=== PATIENT | male | born 1975 | race Caucasian/White ===

== ENCOUNTER 2018-04-27 12:12 | Inpatient (IN) | payer BC, MEDICAID, OTHER ==
--- NOTE | 2018-04-27 13:07 | C.PDOC ---
History Of Present Illness 43 years old male with recurrent possible colitis and no past surgical history presents to ED for complaints of LLQ abdominal pain that began 4 days ago. Patient describes pain as localized, constant and worsening. Patient also repor ts experiencing similar symptoms in the past with prior admission. Patient also states he is taking Oxycontin medications as needed for chronic lower back pain and headaches. Patient states "I do not want to be constipated or addicted." Denies fever, nausea, vomiting, or any other physical complaints. Time Seen by Provider: 04/27/18 12:44 Chief Complaint (Nursing): Abdominal Pain History Per: Patient History/Exam Limitations: no limitations Onset/Duration Of Symptoms: Days (4), Persistent, Worse Since Current Symptoms Are (Timing): Still Present Location Of Pain/Discomfort: LLQ Radiation Of Pain To:: None Quality Of Discomfort: "Pain" Associated Symptoms: denies: Fever, Chills, Nausea, Vomiting Exacerbating Factors: None Alleviating Factors: None Last Bowel Movement: Today Recent travel outside of the [place]: No Past Medical History Reviewed: Historical Data, Nursing Documentation, Vital Signs Vital Signs: Last Vital Signs Temp 98 F 04/27/18 12:38 Pulse 66 04/27/18 12:38 Resp 18 04/27/18 12:38 BP 103/71 04/27/18 12:38 Pulse Ox 98 04/27/18 12:38 - Medical History PMH: Crohn's Disease, Depression Surgical History: No Surg Hx Family History: States: Unknown Family Hx - Social History Hx Alcohol Use: Yes Hx Substance Use: Yes - Immunization History Hx Tetanus Toxoid Vaccination: No Hx Influenza Vaccination: No Hx Pneumococcal Vaccination: No Review Of Systems Except As Marked, All Systems Reviewed And Found Negative. Gastrointestinal: Positive for: Abdominal Pain (LLQ) Physical Exam - Physical Exam Appears: Non-toxic, In Acute Distress (Mild) Skin: Normal Color, Warm, Dry, No Rash Head: Atraumatic, Normacephalic Eye(s): bilateral: Normal Inspection, PERRL, EOMI Oral Mucosa: Moist Neck: Supple Chest: Symmetrical, No Tenderness Cardiovascular: Rhythm Regular, No Murmur Respiratory: Normal Breath Sounds, No Rales, No Rhonchi, No Wheezing, Other (NARD) Gastrointestinal/Abdominal: Bowel Sounds (Active ), Soft, Tenderness (Moderate LLQ), No Distention, No Guarding, No Rebound Extremity: Bilateral: Atraumatic, Normal Color And Temperature, Normal ROM Pulses: Left Radial: Normal, Right Radial: Normal Neurological/Psych: Oriented x3, Normal Speech, Other (No focal deficits ) Gait: Steady ED Course And Treatment - Laboratory Results Result Diagrams: 04/27/18 13:22 04/27/18 13:22 O2 Sat by Pulse Oximetry: 98 (RA) Pulse Ox Interpretation: Normal - CT Scan/US Abdomen/Pelvis CT Other Rad Studies (CT/US): Read By Radiologist, Radiology Report Reviewed CT/US Interpretation: Date of service: 04/27/2018. PROCEDURE: CT Abdomen and Pelvis with contrast. HISTORY: abd pain llq. COMPARISON: CT abdomen and pel vis with contrast performed 01/09/16. TECHNIQUE: Contrast dose: 100 mL Omnipaque 300. Radiation dose: Total exam DLP = 444.48 mGy-cm. This CT exam was performed using one or more of the following dose reduction techniques: Automated exposure control, adjustment of the mA and/or kV according to patient size, and/or use of iterative reconstruction technique. FINDINGS: LOWER THORAX: No visible consolidation, pleural effusion, or pneumothorax. LIVER: Unremarkable. GALLBLADDER AND BILE DUCTS: Unremarkable. PANCREAS: Unremarkable. SPLEEN: Unremarkable. ADRENALS: Unremarkable. KIDNEYS AND URETERS: The kidneys enhance symmetrically. No hydronephrosis or obstructing calculus identified. VASCULATURE: No aortic aneurysm. BOWEL: Stomach is nondistended. Lack of oral contrast limits evaluation for bowel pathology. No evidence of small-bowel obstruction. Several loops of jejunum appears thick walled which may be seen in the setting of enteritis. Markedly thick-walled sigmoid colon with associated inflammatory changes and prominent diverticula consistent with acute diverticulitis. APPENDIX: The appendix is not identified. No secondary signs of acute appendicitis. PERITONEUM: No significant free fluid. No definite free air. LYMPH NODES: No bulky adenopathy identified. BLADDER: Unremarkable. REPRODUCTIVE: Unremarkable. BONES: No acute osseous abnormality is detected. OTHER FINDINGS: None. IMPRESSION: Markedly thick-walled sigmoid colon with associated inflammatory changes and prominent diverticula consistent with acute diverticulitis. Several loops of jejunum appears thick walled which may be seen in the setting of enteritis. Additional findings as above. Progress - Re-Evaluation Re-evaluation Note: 04/27/18 15:00 RECUR PAIN VSS. D/W PMD WILL ADMIT - Data Reviewed Data Reviewed: Lab, Diagnostic imaging, Old records Medical Decision Making Medical Decision Making: Plan: * Morphine * Reglan * IV fluids * Blood work * UA * Abdomen/Pelvis CT Disposition Counseled Patient/Family Regarding: Studies Performed, Diagnosis - Disposition Disposition: HOSPITALIZED Disposition Time: 15:01 Condition: SERIOUS Forms: [facility] (French) - POA Present On Arrival: None - Clinical Impression Clinical Impression: Acute diverticulitis, Intractable abdominal pain - Scribe Statement The provider has reviewed the documentation as recorded by the Niko Mclean All medical record entries made by the Jefryibgilda were at my direction and personally dictated by me. I have reviewed the chart and agree that the record accurately reflects my personal performance of the history, physical exam, medical decision making, and the department course for this patient. I have also personally directed, reviewed, and agree with the discharge instructions and disposition.
[2018-04-27] MEDS ORDERED: Sodium Chloride 0.9% 1,000 ML IV ONE (13:13)
[2018-04-27] MEDS ORDERED: Morphine 4 MG/ML VIAL ONE (13:21)
[2018-04-27] MEDS ORDERED: Sodium Chloride 0.9% 1,000 ML ONE (13:22)
[2018-04-27 13:29] LABS: BASO # 0.1 K/uL (0.0-0.2); BASO % 0.7 % (0.0-2.0); EOS # 0.1 K/uL (0.0-0.7); EOS % 0.7 % (0.0-4.0); HEMOGLOBIN 14.4 g/dL (12.0-18.0); LYMPH # 2.9 K/uL (1.0-4.3); LYMPH % 25.7 % (20.0-40.0); MEAN CELL VOLUME 92.4 fL (80.0-94.0); MEAN CORPUSCULAR HEMOGLOBIN 31.3 pg (27.0-31.0); MEAN CORPUSCULAR HGB CONC 33.8 g/dL (33.0-37.0); MEAN PLATELET VOLUME 8.8 fL (7.2-11.7); MONO # 0.7 K/uL (0.0-0.8); MONO % 6.7 % (0.0-10.0); NEUT # 7.4 K/uL (1.8-7.0); NEUT % 66.2 % (50.0-75.0); NRBC % 0.1 % (0.0-2.0); RBC 4.59 Mil/uL (4.40-5.90); RED CELL DISTRIBUTION WIDTH 13.7 % (11.5-14.5); WHITE BLOOD COUNT 11.1 K/uL (4.8-10.8)
[2018-04-27] MEDS ORDERED: Iohexol 300 100 ML IJ ONE (13:33)
[2018-04-27 13:34] LABS: SQUAMOUS EPITHIAL 1 /hpf (0-5); URINE BILIRUBIN NEGATIVE (NEGATIVE); URINE BLOOD 1+ (NEGATIVE); URINE CLARITY Clear (Clear); URINE COLOR Amber (YELLOW); URINE GLUCOSE (UA) NORMAL (Normal); URINE LEUKOCYTE ESTERASE NEG Leu/uL (Negative); URINE PROTEIN NEGATIVE (NEGATIVE)
[2018-04-27] MEDS ORDERED: Ciprofloxacin 400mg/200ml D5W 400 MG/200 ML BAG IV STA (13:39)
[2018-04-27 13:44] LABS: ALB/GLOB RATIO 1.3 (1.0-2.1); ALBUMIN 4.5 g/dL (3.5-5.0); ALT/SGPT 18 U/L (21-72); AST/SGOT 19 U/L (17-59); BLOOD UREA NITROGEN 14 mg/dL (9-20); GFR NON-AFRICAN AMERICAN > 60; LIPASE 213 U/L (23-300)
[2018-04-27] MEDS ORDERED: Ciprofloxacin 400mg/200ml D5W 400 MG/200 ML BAG IVPB ONE (13:45)
[2018-04-27] MEDS ORDERED: metroNIDAZOLE IV 500 mg/100 ml 500 MG/100 ML BAG IV SCH (13:45)
--- NOTE | 2018-04-27 14:56 | CT ---
Date of service: 04/27/2018 PROCEDURE: CT Abdomen and Pelvis with contrast HISTORY: abd pain llq COMPARISON: CT abdomen and pelvis with contrast performed 01/09/16 TECHNIQUE: Contrast dose: 100 mL Omnipaque 300 Radiation dose: Total exam DLP = 444.48 mGy-cm. This CT exam was performed using one or more of the following dose reduction techniques: Automated exposure control, adjustment of the mA and/or kV according to patient size, and/or use of iterative reconstruction technique. FINDINGS: LOWER THORAX: No visible consolidation, pleural effusion, or pneumothorax. LIVER: Unremarkable. GALLBLADDER AND BILE DUCTS: Unremarkable. PANCREAS: Unremarkable. SPLEEN: Unremarkable. ADRENALS: Unremarkable. KIDNEYS AND URETERS: The kidneys enhance symmetrically. No hydronephrosis or obstructing calculus identified. VASCULATURE: No aortic aneurysm. BOWEL: Stomach is nondistended. Lack of oral contrast limits evaluation for bowel pathology. No evidence of small-bowel obstruction. Several loops of jejunum appears thick walled which may be seen in the setting of enteritis. Markedly thick-walled sigmoid colon with associated inflammatory changes and prominent diverticula consistent with acute diverticulitis. APPENDIX: The appendix is not identified. No secondary signs of acute appendicitis. PERITONEUM: No significant free fluid. No definite free air. LYMPH NODES: No bulky adenopathy identified. BLADDER: Unremarkable. REPRODUCTIVE: Unremarkable. BONES: No acute osseous abnormality is detected. OTHER FINDINGS: None. IMPRESSION: Markedly thick-walled sigmoid colon with associated inflammatory changes and prominent diverticula consistent with acute diverticulitis. Several loops of jejunum appears thick walled which may be seen in the setting of enteritis. Additional findings as above.
[2018-04-27] MEDS ORDERED: HYDROmorphone 0.5 mg/0.5 ml ISec IVP STA ×2 (15:03→17:14)
[2018-04-27] MEDS ORDERED: metroNIDAZOLE IV 500 mg/100 ml 500 MG/100 ML BAG IV STA (15:08)
[2018-04-27] MEDS ORDERED: metroNIDAZOLE IV 500 mg/100 ml 500 MG/100 ML BAG ONE (15:29)
[2018-04-27] MEDS: Dextrose 5%/0.45% NS 1,000 ML IV SCH (19:52)
[2018-04-28] MEDS: metroNIDAZOLE IV 500 mg/100 ml 500 MG/100 ML BAG IVPB SCH ×4 (00:29→23:57)
[2018-04-28] MEDS: Ciprofloxacin 400mg/200ml D5W 400 MG/200 ML BAG IVPB SCH ×2 (00:30→12:11)
[2018-04-28] MEDS: Dextrose 5%/0.45% NS 1,000 ML IV SCH ×2 (05:20→17:54)
[2018-04-28 07:18] LABS: BASO # 0.1 K/uL (0.0-0.2); BASO % 0.9 % (0.0-2.0); EOS # 0.2 K/uL (0.0-0.7); EOS % 1.9 % (0.0-4.0); LYMPH # 3.1 K/uL (1.0-4.3); LYMPH % 35.2 % (20.0-40.0); MONO # 0.6 K/uL (0.0-0.8); MONO % 7.2 % (0.0-10.0); NEUT # 4.7 K/uL (1.8-7.0); NEUT % 54.8 % (50.0-75.0); WHITE BLOOD COUNT 8.7 K/uL (4.8-10.8)
--- NOTE | 2018-04-28 07:41 | CP.PCM.PN ---
Subjective - Date & Time of Evaluation Date of Evaluation: 04/28/18 Time of Evaluation: 07:41 - Subjective Subjective: Medicine Progress Note - Dr Ha Patient is a 43 year old male with past medical history of colitis, chronic back and neck pain who presented to the hospital for abdominal pain that started a few days ago. Patient states that the pain is located in the left lower quadrant. Pain is constant in nature and is non-radiating. States that the pain is similar to when he had colitis in the past. Patient reports that he has not had a bowel movement in a few days. Currently he states that abdominal pain is 8/10 on pain scale. Offers no other complaints at this time. Denies fevers, chills, headaches, dizziness, cp, palpitations, sob, urinary symptoms. Allergies: NKDA Medications: Oxycontin Medical History: Colitis, chronic back and neck pain Surgical History: Denies Social History: Smokes cigarettes, admits to marijuana use, denies alcohol use Objective - Vital Signs/Intake and Output Vital Signs (last 24 hours): Temp Pulse Resp BP Pulse Ox 97.6 F 60 20 128/79 98 04/28/18 07:37 04/28/18 07:37 04/28/18 07:37 04/28/18 07:37 04/28/18 07:37 Intake and Output: 04/28/18 04/28/18 06:59 18:59 Intake Total 1200 Balance 1200 - Medications Medications: Current Medications Hydromorphone HCl (Dilaudid) 2 mg IVP Q4 PRN PRN Reason: Pain, severe (8-10) Last Admin: 04/28/18 05:16 Dose: 2 mg Dextrose/Sodium Chloride (Dextrose 5%/0.45% Ns 1000 Ml) 1,000 mls @ 100 mls/hr IV .Q10H HIPOLITO Last Admin: 04/28/18 05:20 Dose: Not Given Ciprofloxacin (Cipro 400mg/200ml Dsw) 400 mg in 200 mls @ 133 mls/hr IVPB Q12H HIPOLITO; Protocol Last Admin: 04/28/18 00:30 Dose: 133 mls/hr Metronidazole (Flagyl) 500 mg in 100 mls @ 100 mls/hr IVPB Q8H HIPOLITO; Protocol Last Admin: 04/28/18 00:29 Dose: 100 mls/hr - Labs Labs: 04/28/18 07:13 04/27/18 13:22 - Constitutional Appears: Non-toxic, No Acute Distress - Head Exam Head Exam: ATRAUMATIC, NORMAL INSPECTION, NORMOCEPHALIC - Eye Exam Eye Exam: EOMI, Normal appearance Pupil Exam: NORMAL ACCOMODATION - ENT Exam ENT Exam: Mucous Membranes Moist - Neck Exam Neck Exam: Full ROM - Respiratory Exam Respiratory Exam: Clear to Ausculation Bilateral, NORMAL BREATHING PATTERN - Cardiovascular Exam Cardiovascular Exam: REGULAR RHYTHM - GI/Abdominal Exam GI & Abdominal Exam: Soft, Tenderness (LLQ tenderness to palpation) - Extremities Exam Extremities Exam: Normal Inspection - Neurological Exam Neurological Exam: Alert, Awake, Oriented x3 - Psychiatric Exam Psychiatric exam: Normal Affect, Normal Mood - Skin Skin Exam: Dry, Normal Color, Warm Assessment and Plan - Assessment and Plan (Free Text) Assessment: Acute Sigmoid Diverticulitis -Stable, afebrile -CT abd/pelvis showed markedly thick walled sigmoid colon with associated inflammatory changes and prominent diverticula (see full report) -Antibiotics: Ciprofloxacin 400mg Q12mg IVPB, Flagyl 500mg Q8H IVPB -Diet NPO -IV fluid hydration -Pain control: Dilaudid 2mg Q4H prn -F/U stool cultures, blood cultures -Monitor electrolytes -GI on consult, Dr Diana, help appreciated Plan discussed with Dr Dilcia Lyn DO PGY-2
[2018-04-28 09:16] LABS: ALB/GLOB RATIO 1.4 (1.0-2.1); ALT/SGPT 23 U/L (21-72); AST/SGOT 20 U/L (17-59); BLOOD UREA NITROGEN 9 mg/dL (9-20); CALCIUM 9.2 mg/dl (8.6-10.4); GFR NON-AFRICAN AMERICAN > 60
[2018-04-28 12:27] LABS: AMYLASE 53 U/L (30-110); HDL CHOLESTEROL 41 mg/dL (30-70); LIPASE 45 U/L (23-300)
[2018-04-28 12:38] LABS: LDL CHOLESTEROL 129 mg/dL (0-129)
--- NOTE | 2018-04-28 17:20 | PN ---
DATE: 04/28/2018 LOCATION: 353, bed B. HISTORY OF PRESENT ILLNESS: This is an 43-year-old male seen initially for GI consultation on 04/27/18 as requested by the admitting MD, re-examined again today in the presence of Dr. Ha and all the medical staff as well as the patient's family member with a complaint of abdominal pain again with recurrent episode of nausea and vomiting, but without any evidence of hematemesis, reported some rectal bleeding on and off. No chest pain, palpitation, no shortness of breath. No chills or fever. The most recent lab results showed normal white blood cells of 8.7 with reported CEA level as I ordered before. It is 5.2 and official abdominal and pelvic CAT scan report is seen, indicative of inflammatory changes and diverticulosis consistent with acute diverticulitis with several loops of jejunum appearing to be thickened with possible enteritis. . PHYSICAL EXAMINATION: GENERAL: A 43-year-old male. VITAL SIGNS: Afebrile with pulse of 62, respiratory 20-22, blood pressure of 130/74. HEENT: Showed dry oral mucoid membrane. Nonicteric sclerae. LUNGS: Clear. Breathing sounds are present bilaterally. HEART: Possible positive S1 and S2. ABDOMEN: Soft with mild distention with mid-epigastric as well as left lower quadrant tenderness. No mass or organomegaly. No rebound tenderness or guarding. EXTREMITIES: Without edema, clubbing or cyanosis. NEUROLOGIC: No reported new neurological deficits, sensory or motor. IMPRESSION: 1. Re-exacerbation of peptic ulcer disease with recurrent nausea and vomiting; to rule out gastric versus duodenal ulcer. 2. Reported history of Crohn disease with re-exacerbation of inflammatory bowel disease. 3. Abnormal CAT scan of the abdomen and pelvis with evidence of diverticulosis, with acute diverticulitis as well as possible re-exacerbation of inflammatory bowel disease, especially in the left side of the colon. 4. Known history of depression. SUGGESTIONS 1. Agree with your plan. 2. Serum lipase, amylase level to rule out any acute episode of acute pancreatitis. 3. Endoscopic evaluation of the upper GI tract when the patient is more stable clinically. 4. Reglan IV. 5. Sedimentation rate. 6. The patient may need IV steroids pending the outcome of his current medication treatment 7. Further recommendation to follow. Maya Mc MD [facility] # [id number]
[2018-04-29] MEDS: Dextrose 5%/0.45% NS 1,000 ML IV SCH ×4 (05:27→22:14)
[2018-04-29 06:45] LABS: BASO # 0.1 K/uL (0.0-0.2); BASO % 0.8 % (0.0-2.0); EOS # 0.1 K/uL (0.0-0.7); EOS % 1.8 % (0.0-4.0); HEMOGLOBIN 13.7 g/dL (12.0-18.0); LYMPH # 3.6 K/uL (1.0-4.3); LYMPH % 46.5 % (20.0-40.0); MEAN CELL VOLUME 92.2 fL (80.0-94.0); MEAN CORPUSCULAR HEMOGLOBIN 31.8 pg (27.0-31.0); MEAN CORPUSCULAR HGB CONC 34.4 g/dL (33.0-37.0); MEAN PLATELET VOLUME 8.5 fL (7.2-11.7); MONO # 0.6 K/uL (0.0-0.8); MONO % 7.5 % (0.0-10.0); NEUT # 3.4 K/uL (1.8-7.0); NEUT % 43.4 % (50.0-75.0); NRBC % 0.1 % (0.0-2.0); RBC 4.3 Mil/uL (4.40-5.90); RED CELL DISTRIBUTION WIDTH 13.4 % (11.5-14.5); WHITE BLOOD COUNT 7.7 K/uL (4.8-10.8)
[2018-04-29 06:52] LABS: INR 1.4; PROTHROMBIN TIME 15.2 SECONDS (9.7-12.2)
[2018-04-29 07:27] LABS: ALB/GLOB RATIO 1.3 (1.0-2.1); ALT/SGPT 23 U/L (21-72); AST/SGOT 20 U/L (17-59); BLOOD UREA NITROGEN 9 mg/dL (9-20); CALCIUM 9.7 mg/dl (8.6-10.4); GFR NON-AFRICAN AMERICAN > 60
[2018-04-29] MEDS ORDERED: Lactated Ringer's 1,000 ML IV ONE (07:45)
[2018-04-29] MEDS ORDERED: Propofol 10 mg/ml Inj (20 ML) ONE (07:50)
--- NOTE | 2018-04-29 07:58 | CP.PCM.PN ---
Subjective - Date & Time of Evaluation Date of Evaluation: 04/29/18 Time of Evaluation: 07:58 - Subjective Subjective: Medicine Progress Note - Dr Ha Patient seen and examined at bedside. Patient for EGD this morning with Dr Diana. Patient states that his abdominal pain has improved. Rates the pain a 7/10 on pain scale. He did have a bowel movement that was normal. Offers no other complaints at this time. Denies fevers, chills, headaches, dizziness, cp, palpitations, sob, urinary symptoms, nausea/vomiting. Objective - Vital Signs/Intake and Output Vital Signs (last 24 hours): Temp Pulse Resp BP Pulse Ox 98 F 60 20 125/76 99 04/29/18 00:00 04/29/18 00:00 04/29/18 00:00 04/29/18 00:00 04/29/18 00:00 - Medications Medications: Current Medications Hydromorphone HCl (Dilaudid) 2 mg IVP Q4 PRN PRN Reason: Pain, severe (8-10) Last Admin: 04/29/18 06:12 Dose: 2 mg Dextrose/Sodium Chloride (Dextrose 5%/0.45% Ns 1000 Ml) 1,000 mls @ 100 mls/hr IV .Q10H HIPOLITO Last Admin: 04/29/18 05:27 Dose: Not Given Ciprofloxacin (Cipro 400mg/200ml Dsw) 400 mg in 200 mls @ 133 mls/hr IVPB Q12H HIPOLITO; Protocol Last Admin: 04/29/18 00:00 Dose: 133 mls/hr Metronidazole (Flagyl) 500 mg in 100 mls @ 100 mls/hr IVPB Q8H HIPOLITO; Protocol Last Admin: 04/28/18 23:57 Dose: 100 mls/hr Metoclopramide HCl (Reglan) 5 mg IVP Q6 HIPOLITO Last Admin: 04/29/18 05:28 Dose: 5 mg - Labs Labs: 04/29/18 06:40 04/29/18 06:40 PT 15.2 SECONDS (9.7-12.2) H 04/29/18 06:40 INR 1.4 04/29/18 06:40 APTT 43 SECONDS (21-34) H 04/29/18 06:40 - Additional Findings Additional findings: - Constitutional Appears: Non-toxic, No Acute Distress - Head Exam Head Exam: ATRAUMATIC, NORMAL INSPECTION, NORMOCEPHALIC - Eye Exam Eye Exam: EOMI, Normal appearance Pupil Exam: NORMAL ACCOMODATION - ENT Exam ENT Exam: Mucous Membranes Moist - Neck Exam Neck Exam: Full ROM - Respiratory Exam Respiratory Exam: Clear to Ausculation Bilateral, NORMAL BREATHING PATTERN - Cardiovascular Exam Cardiovascular Exam: REGULAR RHYTHM - GI/Abdominal Exam GI & Abdominal Exam: Soft, Tenderness (LLQ tenderness to palpation) - Extremities Exam Extremities Exam: Normal Inspection - Neurological Exam Neurological Exam: Alert, Awake, Oriented x3 - Psychiatric Exam Psychiatric exam: Normal Affect, Normal Mood - Skin Skin Exam: Dry, Normal Color, Warm Assessment and Plan - Assessment and Plan (Free Text) Assessment: Acute Sigmoid Diverticulitis -Stable, afebrile -CT abd/pelvis showed markedly thick walled sigmoid colon with associated inflammatory changes and prominent diverticula (see full report) -EGD 04/29/18 showed medium sized hiatal hernia, non-bleeding gastric and duodenal ulcers -Antibiotics: Ciprofloxacin 400mg Q12mg IVPB, Flagyl 500mg Q8H IVPB -Diet clear liquid for dinner -IV fluid hydration -Pain control: Dilaudid 2mg Q4H prn -F/U stool cultures, c diff, blood cultures -Monitor electrolytes -GI on consult, Dr Diana, help appreciated Plan discussed with Dr Dilcia Lyn DO PGY-2
[2018-04-29] MEDS: metroNIDAZOLE IV 500 mg/100 ml 500 MG/100 ML BAG IVPB SCH ×3 (08:06→16:37)
[2018-04-29] MEDS ORDERED: Phytonadione 10 mg/ml Inj (Adult) SC STA (08:06)
[2018-04-29] MEDS: Pantoprazole 40 mg EC Tab PO SCH (10:34)
[2018-04-29] MEDS ORDERED: Ferric Sodium Gluconat Complex 62.5 mg/5 ml Vial IVPB SCH (11:30)
[2018-04-29] MEDS: Ciprofloxacin 400mg/200ml D5W 400 MG/200 ML BAG IVPB SCH ×2 (12:09)
[2018-04-29 16:13] VITALS: RESP 20
[2018-04-30 00:13] VITALS: O2SAT 99
[2018-04-30] MEDS: Ciprofloxacin 400mg/200ml D5W 400 MG/200 ML BAG IVPB SCH (00:41)
[2018-04-30] MEDS: metroNIDAZOLE IV 500 mg/100 ml 500 MG/100 ML BAG IVPB SCH ×2 (00:55→08:06)
[2018-04-30] MEDS: Dextrose 5%/0.45% NS 1,000 ML IV SCH ×2 (05:41→08:07)
[2018-04-30 07:42] LABS: BASO # 0.1 K/uL (0.0-0.2); BASO % 0.7 % (0.0-2.0); EOS # 0.1 K/uL (0.0-0.7); EOS % 1.3 % (0.0-4.0); HEMOGLOBIN 14.2 g/dL (12.0-18.0); LYMPH # 2.8 K/uL (1.0-4.3); LYMPH % 35.7 % (20.0-40.0); MEAN CELL VOLUME 91.1 fL (80.0-94.0); MEAN CORPUSCULAR HEMOGLOBIN 30.9 pg (27.0-31.0); MEAN CORPUSCULAR HGB CONC 33.9 g/dL (33.0-37.0); MEAN PLATELET VOLUME 8.3 fL (7.2-11.7); MONO # 0.6 K/uL (0.0-0.8); MONO % 8.3 % (0.0-10.0); NEUT # 4.2 K/uL (1.8-7.0); RBC 4.59 Mil/uL (4.40-5.90); RED CELL DISTRIBUTION WIDTH 13.3 % (11.5-14.5); WHITE BLOOD COUNT 7.7 K/uL (4.8-10.8)
[2018-04-30 07:44] LABS: BLOOD UREA NITROGEN 8 mg/dL (9-20); CALCIUM 9.5 mg/dl (8.6-10.4); GFR NON-AFRICAN AMERICAN > 60
[2018-04-30] MEDS: Pantoprazole 40 mg EC Tab PO SCH ×2 (08:11→10:24)
[2018-04-30 08:24] VITALS: BP 122/71; PULSE 59; TEMP 97.1
[2018-04-30] MEDS ORDERED: Bacitracin Ointment 30 GM TUBE TOP ONE (09:58)
--- NOTE | 2018-04-30 10:18 | CP.PCM.PN ---
Subjective - Date & Time of Evaluation Date of Evaluation: 04/30/18 Time of Evaluation: 09:05 - Subjective Subjective: PGY-1 Medicine progress note ( Dr. Ha's service) Patient was seen and examined at bedside. Patient states that he is with much improved symptoms and at his best. Patient denies any acute issues or complaints. Patient denies any symptoms of fever, chills, nausea, vomiting, abdominal pain, diarrhea, chest pain, palpitations, SOB or dizziness. Patient is aware of his results from his upper GI endoscopy yesterday and understands fol low up instructions. Objective - Vital Signs/Intake and Output Vital Signs (last 24 hours): Temp Pulse Resp BP Pulse Ox 97.1 F L 59 L 20 122/71 99 04/30/18 07:00 04/30/18 07:00 04/30/18 07:00 04/30/18 07:00 04/30/18 07:00 Intake and Output: 04/30/18 04/30/18 06:59 18:59 Intake Total 1300 920 Output Total 1000 Balance 300 920 - Medications Medications: Current Medications Hydromorphone HCl (Dilaudid) 2 mg IVP Q4 PRN PRN Reason: Pain, severe (8-10) Last Admin: 04/30/18 05:36 Dose: 2 mg Dextrose/Sodium Chloride (Dextrose 5%/0.45% Ns 1000 Ml) 1,000 mls @ 100 mls/hr IV .Q10H HIPOLITO Last Admin: 04/30/18 08:07 Dose: Not Given Ciprofloxacin (Cipro 400mg/200ml Dsw) 400 mg in 200 mls @ 133 mls/hr IVPB Q12H HIPOLITO; Protocol Last Admin: 04/30/18 00:41 Dose: 133 mls/hr Metronidazole (Flagyl) 500 mg in 100 mls @ 100 mls/hr IVPB Q8H HIPOLITO; Protocol Last Admin: 04/30/18 08:06 Dose: 100 mls/hr Metoclopramide HCl (Reglan) 5 mg IVP Q6 HIPOLITO Last Admin: 04/30/18 05:30 Dose: 5 mg Pantoprazole Sodium (Protonix Ec Tab) 40 mg PO DAILY HIPOLITO Last Admin: 04/30/18 08:11 Dose: 40 mg Sucralfate (Carafate Tab) 1 gm PO ACBD HIPOLITO Last Admin: 04/30/18 08:11 Dose: Not Given - Labs Labs: 04/30/18 07:25 04/30/18 07:25 PT 15.2 SECONDS (9.7-12.2) H 04/29/18 06:40 INR 1.4 04/29/18 06:40 APTT 43 SECONDS (21-34) H 04/29/18 06:40 - Constitutional Appears: Well, No Acute Distress - Head Exam Head Exam: ATRAUMATIC, NORMAL INSPECTION - Eye Exam Eye Exam: EOMI, Normal appearance - ENT Exam ENT Exam: Mucous Membranes Moist - Respiratory Exam Respiratory Exam: Clear to Ausculation Bilateral, NORMAL BREATHING PATTERN. absent: Prolonged Expiratory Phase, Rhonchi, Wheezes, Respiratory Distress, Stridor - Cardiovascular Exam Cardiovascular Exam: REGULAR RHYTHM, +S1, +S2. absent: Tachycardia, Murmur - GI/Abdominal Exam GI & Abdominal Exam: Soft, Normal Bowel Sounds. absent: Distended, Firm, Guarding, Rigid, Tenderness, Rebound - Extremities Exam Extremities Exam: Normal Inspection. absent: Calf Tenderness, Pedal Edema - Neurological Exam Neurological Exam: Alert, Awake, Normal Gait, Oriented x3 - Psychiatric Exam Psychiatric exam: Normal Affect - Skin Skin Exam: Normal Color Assessment and Plan (1) Acute diverticulitis Assessment & Plan: Acute Sigmoid Diverticulitis -Stable, afebrile -CT abd/pelvis showed markedly thick walled sigmoid colon with associated inflammatory changes and prominent diverticula (see full report) -EGD 04/29/18 showed medium sized hiatal hernia, non-bleeding gastric and duodenal ulcers - C-difficle toxin and Ag negative Disposition: Please discharge patient home as per Dr. Ha As per Gastroenterology's recommendation, Dr. Mc, who performed your up per GI endoscopy: 1. Repeat upper endoscopy in 2 months in 2 months for monitoring based on pathology results and stool culture 2. Return to Dr. Diana's office in 5 weeks. Colonoscopy date to be scheduled at this appointment 3. Sucralfate 1 gram PO QID for 8 weeks 4. Protonix 40mg PO daily for 8 weeks Please complete your course of antibiotics for diagnosis of acute sigmoid diverticulitis - Ciprofloxacin 500mg PO every 12 hours till May 07. Please do not take with alcohol. Please avoid all alcoholic beverages for the next 3-4 weeks. - Flagyl 500mg PO every 8 hours till May 07. Please do not take with alcohol. Please avoid all alcoholic beverages for the next 3-4 weeks. Please take the above antibiotics with a probiotic or yogurt for the 4 weeks Please follow up with Dr. Ha in 2 weeks from today Please continue to hydrate Please take care of yourself All plans and management discussed with Dr. Ha Status: Acute
[2018-04-30] MEDS ORDERED: Pneumococcal 23-Valent Vaccine SC ONE (10:50)
[2018-04-30] MEDS ORDERED: Influenza Vaccine 60 MCG/0.5 ML SYR (3 yr & up) IM ONE (10:50)
--- NOTE | 2018-04-30 18:49 | PN ---
DATE: 04/30/2018 LOCATION: 353, bed B. SUBJECTIVE: This is a 43-year-old male seen and examined in rounds today, post upper endoscopy with biopsy yesterday, with less abdominal pain. No nausea or vomiting. Somewhat tolerating liquid diet. No reported active bleeding, significant chest pain, palpitation, shortness of breath, chills or fever. The entire chart is reviewed including but not limited to the most recent lab and radiology study results, current and the previous medication list, current and the previous medical events and today's lab showed normal CBC, but the patient still has elevated PT and PTT with low BUN, blood glucose level 112 with increased CEA level to 5.2, but normal lipase and amylase level. PHYSICAL EXAMINATION: GENERAL: A 43-year-old male, awake, alert and oriented. VITAL SIGNS: Afebrile with pulse of 62, respiratory rate 18 to 20, blood pressure 124/68. HEENT: Showed pale, dry oral mucous membrane. Mildly, nonicteric sclerae. LUNGS: Few scattered crepitation. Decreased air entry at bases. HEART: Positive S1 and S2. ABDOMEN: Soft with mild generalized tenderness, but mainly in the midepigastric and left lower quadrant area. No mass or organomegaly. No rebound tenderness or guarding. EXTREMITIES: Without significant edema, clubbing or cyanosis. NEUROLOGICAL: No reported new neurological deficits. IMPRESSION: 1. Diverticulosis and acute diverticulitis, improving clinically as per radiology study results. 2. Gastric and duodenal ulcer with gastritis by upper endoscopy, biopsy report is still pending. 3. Increased carcinoembryonic antigen level. The possibility of lower gastrointestinal tract neoplastic lesion to be ruled in or out. The patient never had colonoscopy before. 4. Reported history of Crohn disease and depression as per record. SUGGESTIONS: 1. Agree with your plan. 2. The patient will need colonoscopy that should be done as outpatient due to his recent acute episode of diverticulitis. 3. Advance diet gradually. Maya Mc MD
== END 2018-04-30 13:39 | disposition home or self-care (01) | DRG 384 ==
LOC: C.ER 12:12 → C.9E 15:02 → C.3T 18:16
PROVIDERS: ADMIT Internal Medicine Pulmonary Disease; ATTEND Internal Medicine Pulmonary Disease
PROC: 0DB68ZX Excision of Stomach, Via Natural or Artificial Opening Endoscopic, Diagnostic (ICD-10-PCS; 2018-04-29)
PROC: 0DB98ZX Excision of Duodenum, Via Natural or Artificial Opening Endoscopic, Diagnostic (ICD-10-PCS; principal; 2018-04-29 07:45)
DX: K25.9 Gastric ulcer, unspecified as acute or chronic, without hemorrhage or perforation (principal); K57.32 Diverticulitis of large intestine without perforation or abscess without bleeding; K44.9 Diaphragmatic hernia without obstruction or gangrene; K26.9 Duodenal ulcer, unspecified as acute or chronic, without hemorrhage or perforation; K29.70 Gastritis, unspecified, without bleeding; F12.90 Cannabis use, unspecified, uncomplicated; F17.210 Nicotine dependence, cigarettes, uncomplicated; K27.9 Peptic ulcer, site unspecified, unspecified as acute or chronic, without hemorrhage or perforation; R79.1 Abnormal coagulation profile